=== PATIENT | male | born 1995 | race Caucasian/White ===

== ENCOUNTER 2018-05-16 15:58 | Emergency (ER) | payer MEDICAID ==
[~2018-05-16] VITALS: Wt 64.8 kg
[2018-05-16] MEDS ORDERED: DIPHTH/TET/ACEL PERTUSS (ADULT) 0.5 ML VIAL IM* ONE (18:30)
[2018-05-16] MEDS ORDERED: FLUORESCEIN STRIP LEFT EYE ONE (18:30)
[2018-05-16] MEDS ORDERED: TETRACAINE 0.5% 4 ML OPH LEFT EYE ONE (18:30)
[2018-05-16] MEDS ORDERED: POLY10DR19 LEFT EYE (19:46)
[2018-05-16] MEDS ORDERED: POLYMYXIN/TRIMETHOPRIM 10 ML OPH RIGHT EYE ONE (20:00)
[2018-05-16 20:13] VITALS: BP 121/76; PULSE 64; RESP 18
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
== END 2018-05-16 20:17 | disposition home or self-care (01) ==
LOC: FTE 15:58
DX: S01.112A Laceration without foreign body of left eyelid and periocular area, initial encounter (principal); H11.32 Conjunctival hemorrhage, left eye; Y04.8XXA Assault by other bodily force, initial encounter; Z23 Encounter for immunization
CPT/HCPCS: 12013; 90471; 90715; Z7502; Z7610